=== PATIENT | female | born 1990 | race Caucasian/White ===

== ENCOUNTER 2016-10-08 01:10 | Emergency (ER) | payer OTHER ==
[2016-10-08] MEDS ORDERED: diPHENhydraMINE PO* 25 MG PO ONE (01:42)
--- NOTE | 2016-10-08 01:43 | ED ---
Skin Complaint - HPI Summary HPI Summary: 25F presents with rash starting on stomach and spread to shoulder over past hour. She denies any itchiness. She denies any fever but states that she feels warm so she took a Tylenol with did not help. She denies any new products or food. She denies a history of allergies. She denies any chest pain, SOB, or difficulty swallowing. - History of Current Complaint Chief Complaint: EDRashSkinAbscess Time Seen by Provider: 10/08/16 01:34 Stated Complaint: RASH/FEVER 100.0 Hx Last Menstrual Period: 03/14/17 Pain Intensity: 0 - Allergy/Home Medications Allergies/Adverse Reactions: Allergies Allergy/AdvReac Type Severity Reaction Status Date / Time Penicillins [PCN] Allergy Intermediate Rash And Verified 10/08/16 01:15 Itching Etodolac [From Lodine] Allergy Rash Verified 10/08/16 01:15 PMH/Surg Hx/FS Hx/Imm Hx Endocrine/Hematology History: Denies: Hx Anticoagulant Therapy, Hx Diabetes, Hx Thyroid Disease Cardiovascular History: Denies: Hx Congestive Heart Failure, Hx Deep Vein Thrombosis, Hx Hypertension , Hx Myocardial Infarction, Hx Pacemaker/ICD Respiratory History: Denies: Hx Asthma, Hx Chronic Obstructive Pulmonary Disease (COPD), Hx Lung Cancer, Hx Pneumonia, Hx Pulmonary Embolism GI History: Reports: Hx Ulcer - Her last one was in the last year. Last EGD was 2013--[place]. Denies: Hx Gall Bladder Disease, Hx Gastrointestinal Bleed, Hx Urosepsis History: Denies: Hx Kidney Stones, Hx Renal Disease Neurological History: Denies: Hx Dementia, Hx Migraine, Hx Seizures, Hx Transient Ischemic Attacks (TIA) Psychiatric History: Reports: Hx Anxiety Denies: Hx Depression, Hx Schizophrenia, Hx Bipolar Disorder - Surgical History Surgery Procedure, Year, and Place: repair to left arm fx. - Immunization History Date of Tetanus Vaccine: unknown Date of Influenza Vaccine: never Infectious Disease History: No Infectious Disease History: Denies: History Other Infectious Disease, Traveled Outside the [place] in Last 30 Days - Family History Known Family History: Negative: Renal Disease, Blood Disorder - Social History Alcohol Use: None Hx Substance Use: No Substance Use Type: Reports: None Hx Tobacco Use: Yes Smoking Status (MU): Former Smoker Review of Systems Negative: Fever Negative: Chest Pain Negative: Shortness Of Breath Positive: Rash All Other Systems Reviewed And Are Negative: Yes Physical Exam Triage Information Reviewed: Yes Vital Signs On Initial Exam: Initial Vitals Temp Pulse Resp BP Pulse Ox 99.1 F 95 14 115/75 100 10/08/16 01:11 10/08/16 01:11 10/08/16 01:11 10/08/16 01:11 10/08/16 01:11 Vital Signs Reviewed: Yes Appearance: Positive: Well-Appearing Skin: Positive: Other - hives present across abdomen, chest, and back Head/Face: Positive: Normal Head/Face Inspection Eyes: Positive: Normal, Conjunctiva Clear Respiratory/Lung Sounds: Positive: Clear to Auscultation, Breath Sounds Present Cardiovascular: Positive: Normal, RRR Diagnostics - Vital Signs Vital Signs Temp Pulse Resp BP Pulse Ox 10/08/16 01:11 99.1 F 95 14 115/75 100 - Laboratory Lab Statement: Any lab studies that have been ordered have been reviewed, and results considered in the medical decision making process. Course/Dx - Course Course Of Treatment: 25F presents with rash across chest, abdomen, and back today. denies any new products or food. never happened before. denies any chest pain, difficulty swallowing, or SOB. took tyenlol without relief. states felt warm but temp is normal. denies any other symptoms. rash is not itchy. on exam rash appears hive like. unclear what caused rash. will treat with bendaryl in case allergic and prednisone in case contact dermatitis. told to use sensitive products. patient understands and agrees with plan - Differential Diagnoses - Skin Complaint Differential Diagnoses: Contact Dermatitis, Local Allergic Reaction, Systemic Illness, Urticaria - Diagnoses Provider Diagnoses: Rash Discharge - Discharge Plan Condition: Good Disposition: HOME Prescriptions: predniSONE TAB* [Deltasone TAB*] 40 mg PO DAILY #4 tab Patient Education Materials: Contact Dermatitis (ED) Referrals: Sabina Estrada NP [Primary Care Provider] - Additional Instructions: Take Benadryl every 6 hours Take steroid once a day for 4 more days starting tomorrow Can apply topical hydrocortisone for itchiness Take Tylenol or ibuprofen every 6 hours for any pain Follow up with primary if no improvement Return to ED if develop any new or worsening symptoms
[2016-10-08] MEDS ORDERED: predniSONE TAB* 20 MG PO ONE (01:51)
[2016-10-08 03:09] VITALS: BP 115/76
== END 2016-10-08 02:10 | disposition home or self-care (01) ==
LOC: ED 01:10
DX: R21 Rash and other nonspecific skin eruption (principal); Z87.891 Personal history of nicotine dependence
CPT/HCPCS: 99282; A9270-GY; J7512

== ENCOUNTER 2016-12-07 19:18 | Emergency (ER) | payer OTHER ==
[2016-12-07 19:24] VITALS: BP 109/64
[2016-12-07] MEDS ORDERED: Ciprofloxacin TAB* 500 MG PO ONE (20:52)
--- NOTE | 2016-12-07 22:50 | UC ---
Jonna Javier SooYoung, scribed for Moose Stephens MD on 12/07/16 at 1959 . Abdominal Pain Female HPI - HPI Summary HPI Summary: A 26 y/o F presents to E with c/o cramps and pelvic pain onset two days ago. Denies: dysuria, vaginal discharge and bleeding, pain with intercourse, back pain, n/v/d, fever, chills. LNMP approx 10 days ago. Period was normal and on time. She's unsure if she is . G/P: 07/08. PMHx: kidney infections. Pt is a non-smoker, non-drinker. - History of Current Complaint Chief Complaint: UCAbdominalPain Stated Complaint: CRAMPING Time Seen by Provider: 12/07/16 19:58 Hx Obtained From: Patient Hx Last Menstrual Period: 11/27/16 Allergies/Adverse Reactions: Allergies Allergy/AdvReac Type Severity Reaction Status Date / Time Penicillins [PCN] Allergy Intermediate Rash And Verified 10/08/16 01:15 Itching Etodolac [From Lodine] Allergy Rash Verified 10/08/16 01:15 PMH/Surg Hx/FS Hx/Imm Hx Previously Healthy: No - pos: kidney infections GI/ History: Gastroesophageal Reflux Other History Of: Negative For: HIV, Hepatitis B, Hepatitis C, Anticoagulant Therapy - Surgical History Surgical History: Yes Surgery Procedure, Year, and Place: repair to left arm fx. - Family History Known Family History: Negative: Renal Disease, Blood Disorder - Social History Occupation: Employed Full-time Lives: Alone Alcohol Use: None Substance Use Type: None Smoking Status (MU): Former Smoker Household Exposure Type: Cigarettes Review of Systems Gastrointestinal: Other - cramping, pelvic pain Genitourinary: Negative All Other Systems Reviewed And Are Negative: Yes Physical Exam Triage Information Reviewed: Yes Vital Signs: Initial Vital Signs Temp 98.8 F 12/07/16 19:21 Pulse 84 12/07/16 19:21 Resp 16 12/07/16 19:21 BP 109/64 12/07/16 19:21 Pulse Ox 100 12/07/16 19:21 Vital Signs Reviewed: Yes - Additional Comments The patient is well-nourished in no acute distress and in no acute pain. The skin is warm and dry and skin color reflects adequate perfusion. HEENT: The head is normocephalic and atraumatic. The pupils are equal and reactive. The conjunctivae are clear and without drainage. Nares are patent and without drainage. Mouth reveals moist mucous membranes and the throat is without erythema and exudate. The external ears are intact. The ear canals are patent and without drainage. The tympanic membranes are intact. Neck is supple with full range of motion and non-tender. There are no carotid bruits. There is no neck vein distension. Respiratory: Chest is non-tender. Lungs are clear to auscultation and breath sounds are symmetrical and equal. Cardiovascular: Heart is regular rate and rhythm. There is no murmur or rub auscultated. There is no peripheral edema and pulses are symmetrical and equal. Abdomen: The abdomen is soft. There are normal bowel sounds heard in all four quadrants and there is no organomegaly palpated. SUPRAPUBIC TENDERNESS. NO CVA TENDERNESS. Neurological: Patient is alert and oriented to person, place and time. The patient has symmetrical motor strength in all four extremities. Cranial nerves are grossly intact. Deep tendon reflexes are symmetrical and equal in all four extremities. Psychiatric: The patient has an appropriate affect and does not exhibit any anxiety or depression. Abd Pain Female Course/Dx - Course Course Of Treatment: Pt medications reviewed this visit. Normal BP reading and no follow-up instructions required. - Differential Dx/Diagnosis Differential Diagnosis: , Urinary Tract Infection Provider Diagnoses: Pelvic pain; UTI. Discharge - Discharge Plan Condition: Stable Disposition: HOME Prescriptions: Ciprofloxacin TAB* [Cipro 500 MG TAB*] 500 mg PO BID #14 tab Patient Education Materials: Ciprofloxacin (By mouth), Urinary Tract Infection in Women (ED), Pelvic Pain in Women (ED) Referrals: Sabina Estrada NP [Primary Care Provider] - 1 Week (Follow up this week if symptoms persist.) Additional Instructions: Follow up with your primary care provider within the week if symptoms persist. Lab Results - Lab Results Lab Results: 12/07/16 12/07/16 20:16 20:23 POC Urine Color Yellow POC Urine Clarity Clear POC Urine pH 8.0 POC Ur Specif [place] 1.015 POC Urine Protein Negative POC Ur Glucose (UA) Negative POC Urine Ketones Negative POC Urine Blood Negative POC Urine Nitrite Negative POC Urine Bilirubin Negative POC Urine Urobilinogen 0.2 POC U Leukocyte Esteras Trace H POC Ur Test Negative The documentation as recorded by the Jonna asencio SooYoung accurately reflects the service I personally performed and the decisions made by me, Moose Stephens MD.
== END 2016-12-07 20:59 | disposition home or self-care (01) ==
LOC: UCEAST 19:18
DX: N39.0 Urinary tract infection, site not specified (principal); R10.2 Pelvic and perineal pain
CPT/HCPCS: 81003; 84702; 87077; 87086; 87186; 99212; A9270-GY; G0463

== ENCOUNTER 2017-02-26 19:11 | Emergency (ER) | payer OTHER ==
[2017-02-26 20:08] LABS: Urine Bilirubin Negative (Negative); Urine Glucose Negative (Negative); Urine Nitrite Negative (Negative)
[2017-02-26 22:08] LABS: Hematocrit 41 % (35-47); Hemoglobin 13.8 g/dl (12.0-16.0); Mean Corpuscular HGB Conc 34 g/dl (31-36); Mean Corpuscular Hemoglobin 32 pg (27-31); Mean Corpuscular Volume 95 fL (80-97); Mean Platelet Volume 9 um3 (7.4-10.4); Red Blood Count 4.32 10^6/ul (4.0-5.4); Red Cell Distribution Width 14 % (10.5-15); White Blood Count 5.5 10^3/ul (3.5-10.8)
--- NOTE | 2017-02-26 22:15 | RAD ---
HISTORY: Right upper quadrant pain. Patient reports eating approximately 3 hours earlier. COMPARISONS: Similar examination March 12, 2013 TECHNIQUE: Multiple transverse and longitudinal ultrasound images were obtained of the right upper quadrant. FINDINGS: LIVER: The liver is normal in dimensions and echogenicity. Normal hepatic and portal venous blood flow is duplicated with color flow imaging. There is no gross intrahepatic biliary duct dilatation. GALLBLADDER AND EXTRAHEPATIC BILIARY DUCT: There is hyperdense material in the dependent portion of the gallbladder. There is no pericholecystic fluid or gallbladder wall thickening. The common bile duct measures a maximum diameter of 2 mm. PANCREAS: The portions of the pancreas not obscured by bowel gas are normal in appearance. RIGHT KIDNEY: The right kidney is normal in size, morphology and echogenicity. AORTA AND IVC: The visualized portions are normal in appearance and not pathologically dilated. IMPRESSION: SONOGRAPHIC FINDINGS ARE MOST CONSISTENT WITH GALLBLADDER SLUDGE WITHOUT EVIDENCE OF BILIARY OBSTRUCTION OR ACUTE INFLAMMATORY CHANGE.
[2017-02-26 22:24] LABS: ALT 10 U/L (7-52); AST 16 U/L (13-39); Albumin 4.6 g/dL (3.2-5.2); Alkaline Phosphatase 38 U/L (34-104); Anion Gap 4 mmol/L (2-11); BUN/Creatinine Ratio 17.5 (8-20); Blood Urea Nitrogen 14 mg/dL (6-24); C Reactive Protein < 1.00 mg/L (< 5.00); CO2 Carbon Dioxide 27 mmol/L (22-32); Calcium 9.3 mg/dL (8.6-10.3); Chloride 108 mmol/L (101-111); EGFR African American 110.7 (>60); Globulin 2.1 g/dL (2-4); Glucose 95 mg/dL (70-100); Lipase 31 U/L (11.0-82.0); Potassium 4.2 mmol/L (3.5-5.0); Sodium 139 mmol/L (133-145); Total Protein 6.7 g/dL (6.4-8.9)
[2017-02-26 23:26] VITALS: BP 109/75
--- NOTE | 2017-02-26 23:30 | ED ---
I, Oh,Soohyun, scribed for Miguel Cintron MD on 02/26/17 at 1947 . Abdominal Pain/Female - HPI Summary HPI Summary: This 26 y/o female presents to ED for constant but waxing and waning right sided abd pain since today AM. Pt woke up with the pain at 0930 AM. Pain is described as sharp/stabbing. Eating does not aggravate the pain. Position does not change the pain. Negative nausea or dysuira. Normal BM. LMP is 01/11/2017. Pt states that it is late, but had negative home test 1.5 week ago. PMHx includes ovarian cysts and GERD. Primary care involves Sabina Estrada NP - History of Current Complaint Chief Complaint: EDAbdPain Stated Complaint: ABD PAIN-RT SIDE Time Seen by Provider: 02/26/17 19:37 Hx Obtained From: Patient, Medical Records Hx Last Menstrual Period: 01/11/2017 Onset/Duration: Sudden Onset, Lasting Hours, Still Present Timing: Constant Pain Intensity: 5 Pain Scale Used: 0-10 Numeric Location: Discrete At: RUQ, Discrete At: RLQ Radiates: No Character: Sharp Aggravating Factor(s): Nothing Alleviating Factor(s): Nothing Associated Signs and Symptoms: Negative: Fever, Urinary Symptoms, Nausea, Diarrhea Allergies/Adverse Reactions: Allergies Allergy/AdvReac Type Severity Reaction Status Date / Time Penicillins [PCN] Allergy Intermediate Rash And Verified 02/26/17 19:16 Itching Etodolac [From Lodine] Allergy Rash Verified 02/26/17 19:16 PMH/Surg Hx/FS Hx/Imm Hx Endocrine/Hematology History: Denies: Hx Anticoagulant Therapy, Hx Diabetes, Hx Thyroid Disease Cardiovascular History: Denies: Hx Congestive Heart Failure, Hx Deep Vein Thrombosis, Hx Hypertension , Hx Myocardial Infarction, Hx Pacemaker/ICD Respiratory History: Denies: Hx Asthma, Hx Chronic Obstructive Pulmonary Disease (COPD), Hx Lung Cancer, Hx Pneumonia, Hx Pulmonary Embolism GI History: Reports: Hx Ulcer - Her last one was in the last year. Last EGD was 2013--[place]. Denies: Hx Gall Bladder Disease, Hx Gastrointestinal Bleed, Hx Urosepsis History: Denies: Hx Kidney Stones, Hx Renal Disease Neurological History: Denies: Hx Dementia, Hx Migraine, Hx Seizures, Hx Transient Ischemic Attacks (TIA) Psychiatric History: Reports: Hx Anxiety Denies: Hx Depression, Hx Schizophrenia, Hx Bipolar Disorder - Surgical History Surgery Procedure, Year, and Place: repair to left arm fx. - Immunization History Date of Tetanus Vaccine: unknown Date of Influenza Vaccine: never Infectious Disease History: No Infectious Disease History: Denies: Hx Clostridium Difficile, Hx Hepatitis, Hx Human Immunodeficiency Virus (HIV), Hx of Known/Suspected MRSA, Hx Shingles, Hx Tuberculosis, Hx Known/ Suspected VRE, Hx Known/Suspected VRSA, History Other Infectious Disease, Traveled Outside the [place] in Last 30 Days - Family History Known Family History: Negative: Renal Disease, Blood Disorder - Social History Alcohol Use: None Hx Substance Use: No Substance Use Type: Reports: None Hx Tobacco Use: Yes Smoking Status (MU): Former Smoker Review of Systems Negative: Fever Positive: Abdominal Pain - right sided abd pain. Negative: Vomiting, Diarrhea, Nausea Negative: dysuria All Other Systems Reviewed And Are Negative: Yes Physical Exam Triage Information Reviewed: Yes Vital Signs On Initial Exam: Initial Vitals Temp Pulse Resp BP Pulse Ox 98.6 F 99 16 108/71 98 02/26/17 19:14 02/26/17 19:14 02/26/17 19:14 02/26/17 19:14 02/26/17 19:14 Vital Signs Reviewed: Yes Appearance: Positive: Well-Appearing, No Pain Distress, Well-Nourished Skin: Positive: Warm, Skin Color Reflects Adequate Perfusion, Dry Head/Face: Positive: Normal Head/Face Inspection Eyes: Positive: EOMI, JORDAN Neck: Positive: Supple, Nontender Respiratory/Lung Sounds: Positive: Clear to Auscultation, Breath Sounds Present Cardiovascular: Positive: RRR, Pulses are Symmetrical in both Upper and Lower Extremities Abdomen Description: Positive: Other: - RUQ tenderness and right flank tenderness Musculoskeletal: Positive: Strength/ROM Intact Neurological: Positive: Sensory/Motor Intact, Alert, Oriented to Person Place, Time Psychiatric: Positive: Affect/Mood Appropriate AVPU Assessment: Alert Diagnostics - Vital Signs Vital Signs Temp Pulse Resp BP Pulse Ox 02/26/17 19:16 98.6 F 99 16 108/71 98 02/26/17 19:14 98.6 F 99 16 108/71 98 - Laboratory Lab Results: Lab Results 08/22/17 08/22/17 08/22/17 Range/Units 19:40 22:00 22:00 WBC 5.5 (3.5-10.8) 10^3/ul RBC 4.32 (4.0-5.4) 10^6/ul Hgb 13.8 (12.0-16.0) g/dl Hct 41 (35-47) % MCV 95 (80-97) fL MCH 32 H (27-31) pg MCHC 34 (31-36) g/dl RDW 14 (10.5-15) % Plt Count 172 (150-450) 10^3/ul MPV 9 (7.4-10.4) um3 Neut % (Auto) 57.0 (38-83) % Lymph % (Auto) 31.8 (25-47) % [place] % (Auto) 7.7 (1-9) % Eos % (Auto) 3.1 (0-6) % Baso % (Auto) 0.4 (0-2) % Absolute Neuts (auto) 3.1 (1.5-7.7) 10^3/ul Absolute Lymphs (auto) 1.7 (1.0-4.8) 10^3/ul Absolute Monos (auto) 0.4 (0-0.8) 10^3/ul Absolute Eos (auto) 0.2 (0-0.6) 10^3/ul Absolute Basos (auto) 0 (0-0.2) 10^3/ul Absolute Nucleated RBC 0 10^3/ul Nucleated RBC % 0 Sodium 139 (133-145) mmol/L Potassium 4.2 (3.5-5.0) mmol/L Chloride 108 (101-111) mmol/L Carbon Dioxide 27 (22-32) mmol/L Anion Gap 4 (2-11) mmol/L BUN 14 (6-24) mg/dL Creatinine 0.80 (0.51-0.95) mg/dL Est GFR ( Amer) 110.7 (>60) Est GFR (Non-Af Amer) 86.0 (>60) BUN/Creatinine Ratio 17.5 (8-20) Glucose 95 (70-100) mg/dL Lactic Acid (0.5-2.0) mmol/L Calcium 9.3 (8.6-10.3) mg/dL Total Bilirubin 0.40 (0.2-1.0) mg/dL AST 16 (13-39) U/L ALT 10 (7-52) U/L Alkaline Phosphatase 38 (34-104) U/L C-Reactive Protein < 1.00 (< 5.00) mg/L Total Protein 6.7 (6.4-8.9) g/dL Albumin 4.6 (3.2-5.2) g/dL Globulin 2.1 (2-4) g/dL Albumin/Globulin Ratio 2.2 (1-3) Lipase 31 (11.0-82.0) U/L Beta HCG, Quant < 0.60 mIU/mL Urine Color Yellow Urine Appearance Cloudy Urine pH 6.0 (5-9) Ur Specific [place] 1.015 (1.010-1.030) Urine Protein Negative (Negative) Urine Ketones Negative (Negative) Urine Blood Negative (Negative) Urine Nitrate Negative (Negative) Urine Bilirubin Negative (Negative) Urine Urobilinogen Negative (Negative) Ur Leukocyte Esterase Negative (Negative) Urine Glucose Negative (Negative) 02/26/17 Range/Units 22:00 WBC (3.5-10.8) 10^3/ul RBC (4.0-5.4) 10^6/ul Hgb (12.0-16.0) g/dl Hct (35-47) % MCV (80-97) fL MCH (27-31) pg MCHC (31-36) g/dl RDW (10.5-15) % Plt Count (150-450) 10^3/ul MPV (7.4-10.4) um3 Neut % (Auto) (38-83) % Lymph % (Auto) (25-47) % [place] % (Auto) (1-9) % Eos % (Auto) (0-6) % Baso % (Auto) (0-2) % Absolute Neuts (auto) (1.5-7.7) 10^3/ul Absolute Lymphs (auto) (1.0-4.8) 10^3/ul Absolute Monos (auto) (0-0.8) 10^3/ul Absolute Eos (auto) (0-0.6) 10^3/ul Absolute Basos (auto) (0-0.2) 10^3/ul Absolute Nucleated RBC 10^3/ul Nucleated RBC % Sodium (133-145) mmol/L Potassium (3.5-5.0) mmol/L Chloride (101-111) mmol/L Carbon Dioxide (22-32) mmol/L Anion Gap (2-11) mmol/L BUN (6-24) mg/dL Creatinine (0.51-0.95) mg/dL Est GFR ( Amer) (>60) Est GFR (Non-Af Amer) (>60) BUN/Creatinine Ratio (8-20) Glucose (70-100) mg/dL Lactic Acid 0.9 (0.5-2.0) mmol/L Calcium (8.6-10.3) mg/dL Total Bilirubin (0.2-1.0) mg/dL AST (13-39) U/L ALT (7-52) U/L Alkaline Phosphatase (34-104) U/L C-Reactive Protein (< 5.00) mg/L Total Protein (6.4-8.9) g/dL Albumin (3.2-5.2) g/dL Globulin (2-4) g/dL Albumin/Globulin Ratio (1-3) Lipase (11.0-82.0) U/L Beta HCG, Quant mIU/mL Urine Color Urine Appearance Urine pH (5-9) Ur Specific [place] (1.010-1.030) Urine Protein (Negative) Urine Ketones (Negative) Urine Blood (Negative) Urine Nitrate (Negative) Urine Bilirubin (Negative) Urine Urobilinogen (Negative) Ur Leukocyte Esterase (Negative) Urine Glucose (Negative) Result Diagrams: 02/26/17 22:00 02/26/17 22:00 Lab Statement: Any lab studies that have been ordered have been reviewed, and results considered in the medical decision making process. - Additional Comments Diagnostic Additional Comments: US Gallbladder -- SONOGRAPHIC FINDINGS ARE MOST CONSISTENT WITH GALLBLADDER SLUDGE WITHOUT EVIDENCE OF BILIARY OBSTRUCTION OR ACUTE INFLAMMATORY CHANGE. Re-Evaluation - Re-Evaluation First Eval Re-Evaluation Time: 21:08 Comment: in room to re-evaluate pt. Pt reports worsening symptoms. Abdominal Pain Fem Course/Dx - Course Course Of Treatment: Ms. Bradford has had some mild RUQ pain and was mildly tender to palpation. HE W/U was negative and she will be D/C'd to F/U. - Diagnoses Provider Diagnoses: Abdominal pain Discharge - Discharge Plan Condition: Stable Disposition: HOME Patient Education Materials: Abdominal Pain (ED) Forms: *Work Release Referrals: Sabina Estrada, SANITATION ENGINEER [Primary Care Provider] - 2 Days The documentation as recorded by the Luis F asencio Soohyun accurately reflects the service I personally performed and the decisions made by me, Miguel Cintron MD.
== END 2017-02-26 23:26 | disposition home or self-care (01) ==
LOC: ED 19:11
DX: R10.9 Unspecified abdominal pain (principal); Z87.891 Personal history of nicotine dependence
CPT/HCPCS: 36415; 76705; 80053; 81003; 83605; 83690; 84702; 85025; 86140; 99283

== ENCOUNTER 2017-07-23 08:49 | Emergency (ER) | payer MEDICAID, OTHER ==
[2017-07-23] MEDS ORDERED: Ondansetron INJ* 2 MG/ML VIAL IV ONE (10:02)
[2017-07-23] MEDS ORDERED: NS 0.9% 1000 ML* 1,000 ML IV ONE (10:31)
[2017-07-23 10:46] LABS: ABS Basophils 0 10^3/ul (0-0.2); ABS Eosinophils 0.1 10^3/ul (0-0.6); ABS Lymphocytes 1.6 10^3/ul (1.0-4.8); ABS Monocytes 0.3 10^3/ul (0-0.8); ABS Nucleated RBC 0 10^3/ul; Eosinophil % 3.2 % (0-6); Hematocrit 40 % (35-47); Hemoglobin 13.7 g/dl (12.0-16.0); Lymphocyte % 38.3 % (25-47); Mean Corpuscular HGB Conc 34 g/dl (31-36); Mean Corpuscular Hemoglobin 32 pg (27-31); Mean Corpuscular Volume 94 fL (80-97); Mean Platelet Volume 9 um3 (7.4-10.4); Nucleated Red Blood Cells % 0.1; Platelet Count 182 10^3/ul (150-450); Red Blood Count 4.28 10^6/ul (4.0-5.4); Red Cell Distribution Width 13 % (10.5-15); White Blood Count 4.1 10^3/ul (3.5-10.8)
--- NOTE | 2017-07-23 10:48 | RAD ---
HISTORY: Right upper quadrant pain COMPARISONS: February 26, 2017 TECHNIQUE: Multiple transverse and longitudinal ultrasound images were obtained of the right upper quadrant of the abdomen using grayscale and color Doppler imaging. FINDINGS: LIVER: The liver is normal in shape, size, contour, and echogenicity. There are no focal parenchymal masses. There is normal hepatopedal flow of the portal vein on Doppler imaging. BILIARY TREE: There is no intrahepatic or extrahepatic biliary dilatation. The common duct measures 0.2 cm. GALLBLADDER: The gallbladder is well-visualized. There is no cholelithiasis, gallbladder wall thickening, pericholecystic fluid, or sonographic Carrasco sign. PANCREAS: The head of the pancreas is unremarkable. The tail of the pancreas is not well visualized secondary to overlying bowel gas. RIGHT KIDNEY: The right kidney is normal in shape, size, contour, and echogenicity. There is no hydronephrosis or nephrolithiasis. The right kidney measures 10.8 x 3.5 x 3.6 cm. AORTA AND IVC: The aorta and IVC are unremarkable. FLUID: There are no pleural effusions. There is no free fluid within the hepatorenal recess. OTHER FINDINGS: None. IMPRESSION: NO CHOLELITHIASIS. NO ACUTE SONOGRAPHIC PATHOLOGY OF THE VISUALIZED PORTION OF THE ABDOMEN.
[2017-07-23 11:03] LABS: EGFR Non-African American 100.4 (>60)
[2017-07-23 11:18] LABS: Urine Appearance Clear; Urine Color Yellow
[2017-07-23 11:22] LABS: Urine Blood Negative (Negative); Urine Ketones Negative (Negative); Urine Protein 1+(30 mg/dL) (Negative); Urine Specific Gravity 1.025 (1.010-1.030); Urine Urobilinogen Negative (Negative)
[2017-07-23] MEDS ORDERED: Al Hydrox/Mg Hydrox/Simet LIQ* 30 ML UDC PO ONE (12:36)
[2017-07-23] MEDS ORDERED: Lidocaine 2% VISCOUS* 15 ML UDC PO ONE (12:36)
--- NOTE | 2017-07-23 12:37 | ED ---
Abdominal Pain/Female - HPI Summary HPI Summary: Pt here w/ RUQ pain x months but recently radiating to Rt shoulder. Denies V/D however has had some nausea at times. No hematochezia. Can tolerate fat free PO liquids - pain with food only and has not tried to eat fat free foods only. H/o GB issues - "sludge" present at last visit and reports it was recommended she have a stent placed however she lost her insurance so never had this done. Admits she's here today because she couldn't get in to see PCP and was "going to need referral to specialist all over again" - didn't want to wait. Also has h /o GERD and was rx'd PPI - has been taking w/o much relief of RUQ pain - had worse GERD in the past and reports pain in RUQ to shoulder feels different. LMP - now. - History of Current Complaint Chief Complaint: Zheng Stated Complaint: ABD/FLANK PAIN Time Seen by Provider: 07/23/17 09:09 Hx Obtained From: Patient Hx Last Menstrual Period: 01/11/2017 Pain Intensity: 5 Allergies/Adverse Reactions: Allergies Allergy/AdvReac Type Severity Reaction Status Date / Time Penicillins [PCN] Allergy Intermediate Rash And Verified 02/26/17 19:16 Itching Etodolac [From Lodine] Allergy Rash Verified 02/26/17 19:16 PMH/Surg Hx/FS Hx/Imm Hx Previously Healthy: No - ongoing gallbladder issue Endocrine/Hematology History: Denies: Hx Anticoagulant Therapy, Hx Diabetes, Hx Thyroid Disease Cardiovascular History: Denies: Hx Congestive Heart Failure, Hx Deep Vein Thrombosis, Hx Hypertension , Hx Myocardial Infarction, Hx Pacemaker/ICD Respiratory History: Denies: Hx Asthma, Hx Chronic Obstructive Pulmonary Disease (COPD), Hx Lung Cancer, Hx Pneumonia, Hx Pulmonary Embolism GI History: Reports: Hx Ulcer - Her last one was in the last year. Last EGD was 2013--[place]. Denies: Hx Gall Bladder Disease, Hx Gastrointestinal Bleed, Hx Urosepsis History: Denies: Hx Kidney Stones, Hx Renal Disease Neurological History: Denies: Hx Dementia, Hx Migraine, Hx Seizures, Hx Transient Ischemic Attacks (TIA) Psychiatric History: Reports: Hx Anxiety Denies: Hx Depression, Hx Schizophrenia, Hx Bipolar Disorder - Surgical History Surgery Procedure, Year, and Place: repair to left arm fx. - Immunization History Date of Tetanus Vaccine: unknown Date of Influenza Vaccine: never Infectious Disease History: No Infectious Disease History: Denies: Hx Clostridium Difficile, Hx Hepatitis, Hx Human Immunodeficiency Virus (HIV), Hx of Known/Suspected MRSA, Hx Shingles, Hx Tuberculosis, Hx Known/ Suspected VRE, Hx Known/Suspected VRSA, History Other Infectious Disease, Traveled Outside the [place] in Last 30 Days - Family History Known Family History: Negative: Renal Disease, Blood Disorder - Social History Alcohol Use: None Hx Substance Use: No Substance Use Type: Reports: None Hx Tobacco Use: Yes - not currently Smoking Status (MU): Former Smoker Review of Systems Constitutional: Negative Negative: Fever, Chills, Fatigue Cardiovascular: Negative Negative: Palpitations, Chest Pain Respiratory: Negative Negative: Shortness Of Breath, Cough Positive: Abdominal Pain, Nausea. Negative: Vomiting, Diarrhea Genitourinary: Negative Musculoskeletal: Negative Skin: Negative Neurological: Negative Psychological: Normal All Other Systems Reviewed And Are Negative: Yes Physical Exam Triage Information Reviewed: Yes Vital Signs On Initial Exam: Initial Vitals Temp Pulse Resp BP Pulse Ox 99.5 F 65 16 108/63 100 07/23/17 08:55 07/23/17 08:55 07/23/17 08:55 07/23/17 08:55 07/23/17 08:55 Vital Signs Reviewed: Yes Appearance: Positive: Well-Appearing, No Pain Distress, Well-Nourished Skin: Positive: Warm, Skin Color Reflects Adequate Perfusion, Dry Head/Face: Positive: Normal Head/Face Inspection Eyes: Positive: Normal, EOMI, Conjunctiva Clear - anicteric sclera ENT: Positive: Normal ENT inspection, Hearing grossly normal, Pharynx normal - mucosa moist Neck: Positive: Supple, Nontender Respiratory/Lung Sounds: Positive: Clear to Auscultation, Breath Sounds Present. Negative: Rales, Rhonchi, Wheezes Cardiovascular: Positive: Normal, RRR, Pulses are Symmetrical in both Upper and Lower Extremities, S1, S2. Negative: Murmur, Rub Abdomen Description: Positive: No Organomegaly, Soft, Other: - mild RUQ TTP - no rebounding. Negative: Distended, Guarding, Hernia @ Bowel Sounds: Positive: Present Pelvic Exam: Positive: other - deferred - pt denies vaginal sx Musculoskeletal: Positive: Normal, Strength/ROM Intact Neurological: Positive: Normal, Sensory/Motor Intact, Alert, Oriented to Person Place, Time, CN Intact II-III Psychiatric: Positive: Normal - [place] Coma Scale Coma Scale Total: 15 Diagnostics - Vital Signs Vital Signs Temp Pulse Resp BP Pulse Ox 07/23/17 12:30 92/57 07/23/17 12:00 90/60 07/23/17 11:30 63 110/68 100 07/23/17 11:06 66 100 07/23/17 11:04 127/63 07/23/17 08:55 99.5 F 65 16 108/63 100 - Laboratory Lab Results: Lab Results 07/23/17 07/23/17 07/23/17 Range/Units 10:37 10:37 10:37 WBC 4.1 (3.5-10.8) 10^3/ul RBC 4.28 (4.0-5.4) 10^6/ul Hgb 13.7 (12.0-16.0) g/dl Hct 40 (35-47) % MCV 94 (80-97) fL MCH 32 H (27-31) pg MCHC 34 (31-36) g/dl RDW 13 (10.5-15) % Plt Count 182 (150-450) 10^3/ul MPV 9 (7.4-10.4) um3 Neut % (Auto) 49.2 (38-83) % Lymph % (Auto) 38.3 (25-47) % [place] % (Auto) 8.6 (1-9) % Eos % (Auto) 3.2 (0-6) % Baso % (Auto) 0.7 (0-2) % Absolute Neuts (auto) 2.0 (1.5-7.7) 10^3/ul Absolute Lymphs (auto) 1.6 (1.0-4.8) 10^3/ul Absolute Monos (auto) 0.3 (0-0.8) 10^3/ul Absolute Eos (auto) 0.1 (0-0.6) 10^3/ul Absolute Basos (auto) 0 (0-0.2) 10^3/ul Absolute Nucleated RBC 0 10^3/ul Nucleated RBC % 0.1 Sodium 137 (133-145) mmol/L Potassium 4.0 (3.5-5.0) mmol/L Chloride 106 (101-111) mmol/L Carbon Dioxide 26 (22-32) mmol/L Anion Gap 5 (2-11) mmol/L BUN 7 (6-24) mg/dL Creatinine 0.70 (0.51-0.95) mg/dL Est GFR ( Amer) 129.1 (>60) Est GFR (Non-Af Amer) 100.4 (>60) BUN/Creatinine Ratio 10.0 (8-20) Glucose 78 (70-100) mg/dL Lactic Acid 1.0 (0.5-2.0) mmol/L Calcium 9.3 (8.6-10.3) mg/dL Magnesium 2.2 (1.9-2.7) mg/dL Total Bilirubin 0.50 (0.2-1.0) mg/dL AST 12 L (13-39) U/L ALT 11 (7-52) U/L Alkaline Phosphatase 38 (34-104) U/L C-Reactive Protein < 1.00 (< 5.00) mg/L Total Protein 6.4 (6.4-8.9) g/dL Albumin 4.3 (3.2-5.2) g/dL Globulin 2.1 (2-4) g/dL Albumin/Globulin Ratio 2.0 (1-3) Amylase 36 (29-103) U/L Lipase 23 (11.0-82.0) U/L Beta HCG, Quant < 0.60 mIU/mL Urine Color Urine Appearance Urine pH (5-9) Ur Specific [place] (1.010-1.030) Urine Protein (Negative) Urine Ketones (Negative) Urine Blood (Negative) Urine Nitrate (Negative) Urine Bilirubin (Negative) Urine Urobilinogen (Negative) Ur Leukocyte Esterase (Negative) Urine Glucose (Negative) 07/23/17 Range/Units 11:00 WBC (3.5-10.8) 10^3/ul RBC (4.0-5.4) 10^6/ul Hgb (12.0-16.0) g/dl Hct (35-47) % MCV (80-97) fL MCH (27-31) pg MCHC (31-36) g/dl RDW (10.5-15) % Plt Count (150-450) 10^3/ul MPV (7.4-10.4) um3 Neut % (Auto) (38-83) % Lymph % (Auto) (25-47) % [place] % (Auto) (1-9) % Eos % (Auto) (0-6) % Baso % (Auto) (0-2) % Absolute Neuts (auto) (1.5-7.7) 10^3/ul Absolute Lymphs (auto) (1.0-4.8) 10^3/ul Absolute Monos (auto) (0-0.8) 10^3/ul Absolute Eos (auto) (0-0.6) 10^3/ul Absolute Basos (auto) (0-0.2) 10^3/ul Absolute Nucleated RBC 10^3/ul Nucleated RBC % Sodium (133-145) mmol/L Potassium (3.5-5.0) mmol/L Chloride (101-111) mmol/L Carbon Dioxide (22-32) mmol/L Anion Gap (2-11) mmol/L BUN (6-24) mg/dL Creatinine (0.51-0.95) mg/dL Est GFR ( Amer) (>60) Est GFR (Non-Af Amer) (>60) BUN/Creatinine Ratio (8-20) Glucose (70-100) mg/dL Lactic Acid (0.5-2.0) mmol/L Calcium (8.6-10.3) mg/dL Magnesium (1.9-2.7) mg/dL Total Bilirubin (0.2-1.0) mg/dL AST (13-39) U/L ALT (7-52) U/L Alkaline Phosphatase (34-104) U/L C-Reactive Protein (< 5.00) mg/L Total Protein (6.4-8.9) g/dL Albumin (3.2-5.2) g/dL Globulin (2-4) g/dL Albumin/Globulin Ratio (1-3) Amylase (29-103) U/L Lipase (11.0-82.0) U/L Beta HCG, Quant mIU/mL Urine Color Yellow Urine Appearance Clear Urine pH 6 (5-9) Ur Specific Venus 1.025 (1.010-1.030) Urine Protein 1+(30 mg/dl) H (Negative) Urine Ketones Negative (Negative) Urine Blood Negative (Negative) Urine Nitrate Negative (Negative) Urine Bilirubin Negative (Negative) Urine Urobilinogen Negative (Negative) Ur Leukocyte Esterase Negative (Negative) Urine Glucose Negative (Negative) Result Diagrams: 07/23/17 10:37 07/23/17 10:37 Lab Statement: Any lab studies that have been ordered have been reviewed, and results considered in the medical decision making process. Re-Evaluation - Re-Evaluation First Eval Change: Improved - nausea improved w/ zofran - still has some soreness - will trial GI cocktail as she also has h/o GERD - U/S normal but discussed possibility of gallbladder dysfunction Abdominal Pain Fem Course/Dx - Course Course Of Treatment: Discussed case w/ Dr. Savage. Pt does not appear to have structural issues w/ Gallbaldder or liver - labs WNL and vitals are as well. Discussed with pt possibility of GB dysfunction and that a HIDA cck could be ordered outpt to further assess. tx GERD/gastritis as well here today as well to see if this helps her sx. If so, may follow-up with PCP to discuss further w/ u there as she has h/o ulcer. Denies s/sx of GI bleed today and labs along with vitals do not indicate this being an acute issue. Reviewed danger s/sx of when to return to ED. Pt agrees w/ plan and will follow fat free/GERD diet in the meantime until further care by PCP. - Diagnoses Provider Diagnoses: RUQ abdominal pain, GERD (gastroesophageal reflux disease) Discharge - Discharge Plan Condition: Stable Disposition: HOME Prescriptions: Ondansetron ODT TAB* [Zofran 4 MG Odt TAB*] 8 mg PO Q8H PRN #9 tab.odt PRN Reason: Nausea Patient Education Materials: Biliary Colic (ED), Diet for Stomach Ulcers and Gastritis (ED), Gastroesophageal Reflux Disease (ED) Referrals: Sabina Estrada, [employer] [Primary Care Provider] - Additional Instructions: Your tests here today were negative for acute liver/gallbladder and/pr pancreatic pathology however we discussed the possibility of dysfunction of the gallbladder. This may be evaluated outpatient via HIDA CCK testing. Your PCP can order this for your and review results. If positive, you may benefit from a surgical consult. Call today to request test to be scheduled and follow-up appointment. In the meantime, continue gallbladder/GERD diet to reduce risk of triggering pain. Stay hydrated and nourished with fat free foods and liquids. A nausea medication has been provided for brief use around time of testing - this is not meant for nutrient management specialist use. *If you develop fever, chills, intractable vomiting, diarrhea, chest pain, difficulty breathing or swallowing, return to ED
[2017-07-23 13:54] VITALS: BP 105/67
== END 2017-07-23 13:53 | disposition home or self-care (01) ==
LOC: ED 08:49
DX: R10.11 Right upper quadrant pain (principal); K21.9 Gastro-esophageal reflux disease without esophagitis; R11.0 Nausea
CPT/HCPCS: 36415; 76705; 80053; 81003; 81015; 82150; 83605; 83690; 83735; 84702; 85025; 86140; 96374; 99282; A9270-GY; J2405

== ENCOUNTER 2018-05-13 16:50 | Emergency (ER) | payer OTHER ==
[2018-05-13 17:03] VITALS: BP 137/96
--- NOTE | 2018-05-13 17:05 | UC ---
Throat Pain/Nasal Brennan HPI - HPI Summary HPI Summary: 27 yo female presents with fever, rash on torso, and body aches for the last 3 days. She tells me that about 2-3 weeks ago she had a sore throat for a few days , but this went away. The rash began this morning that she noticed on her abdomen and has spread to her chest. She has been taking tylenol and ibuprofen for her discomfort with mild relief. Denies chills, cough, SOB, chest pain, abdominal pain, n/v/d/c, or dysuria. Her LMP was on 04/09, but she says she is usually irregular and is not surprised she is late - but has had unprotected intercourse over the last month and is not on control. - History of Current Complaint Chief Complaint: UCGeneralIllness Stated Complaint: FEVER, RASH, AND ACHES Time Seen by Provider: 05/13/18 17:04 Hx Obtained From: Patient Hx Last Menstrual Period: [id number] Onset/Duration: Gradual Onset Severity: Mild Pain Intensity: 3 Pain Scale Used: 0-10 Numeric - Allergies/Home Medications Allergies/Adverse Reactions: Allergies Allergy/AdvReac Type Severity Reaction Status Date / Time etodolac Allergy Intermediate Rash Verified 05/13/18 17:03 Penicillins Allergy Intermediate Rash And Verified 05/13/18 17:03 Itching PMH/Surg Hx/FS Hx/Imm Hx Cardiovascular History: Hypertension GI/ History: Gastroesophageal Reflux Other History Of: Negative For: HIV, Hepatitis B, Hepatitis C, Anticoagulant Therapy - Surgical History Surgical History: Yes Surgery Procedure, Year, and Place: repair to left arm fx. - Family History Known Family History: Positive: None Negative: Renal Disease, Blood Disorder - Social History Occupation: Employed Full-time Lives: With Family Alcohol Use: None Substance Use Type: None Smoking Status (MU): Former Smoker Household Exposure Type: Cigarettes Review of Systems Constitutional: Fever, Other - Body aches Skin: Rash Eyes: Negative ENT: Sore Throat Respiratory: Negative Cardiovascular: Negative Gastrointestinal: Negative Neurovascular: Negative Neurological: Negative Psychological: Negative All Other Systems Reviewed And Are Negative: Yes Physical Exam - Summary Physical Exam Summary: GENERAL: NAD. WDWN. No pain distress. SKIN: Maculopapular sandpaper-like flat rash to chest, abdomen, and extensively on back. No open wounds or warmth. HEENT: Head: AT/NC Eyes: Conjunctiva clear without inflammation or discharge. Ears: Hearing grossly normal. TMs intact, no bulging, erythema, or edema. Nose: Nasal mucosa pink and moist. NTTP maxillary and frontal sinus. Throat: Posterior oropharynx mild erythema. No tonsillar enlargement. No exudates. Uvula midline. No hoarse voice or muffled voice. NECK: Supple. Mild tonsillar LAD. CHEST: CTAB. No r/r/w. No accessory muscle use. Breathing comfortably and in no distress. CV: RRR. Without m/r/g. Pulses intact. Cap refill <2seconds ABDOMEN: Soft. NTTP. No distention or guarding. No CVA tenderness. Bowel sounds present NEURO: Alert. PSYCH: Age appropriate behavior. Triage Information Reviewed: Yes Vital Signs: Initial Vital Signs Temp 99.6 F 05/13/18 16:58 Pulse 99 05/13/18 16:58 Resp 16 05/13/18 16:58 BP 137/96 05/13/18 16:58 Pulse Ox 100 05/13/18 16:58 Laboratory Tests 05/13/18 05/13/18 17:08 17:14 POC Urine Color Bel[place] POC Urine Clarity Cloudy POC Urine pH 5.5 POC Ur Specif [place] >= 1.030 POC Urine Protein Negative POC Ur Glucose (UA) Negative POC Urine Ketones 1+ A POC Urine Blood Negative POC Urine Nitrite Negative POC Urine Bilirubin 1+ A POC Urine Urobilinogen 1.0 POC U Leukocyte Esteras Negative Group A Strep Rapid Negative Vital Signs Reviewed: Yes Throat Pain/Nasal Course/Dx - Course Course Of Treatment: High suspicion for strep rash given recent sore throat and now appearance of rash. Will treat her with keflex for strep infection and draw for CBC, CMP, monospot, and ASO titer. - Differential Dx/Diagnosis Provider Diagnoses: scarlatina Discharge - Sign-Out/Discharge Documenting (check all that apply): Patient Departure All imaging exams completed and their final reports reviewed: No Studies - Discharge Plan Condition: Stable Disposition: HOME Prescriptions: Cephalexin CAP* [Keflex CAP*] 500 mg PO BID #20 cap Patient Education Materials: Strep Throat (ED), Scarlet Fever (ED) Referrals: Sabina Estrada NP [Primary Care Provider] - Additional Instructions: If you develop a fever, shortness of breath, chest pain, new or worsening symptoms - please call your PCP or go to the ED. Your blood pressure was high at todays visit. Please see your primary provider within 4 weeks for recheck and re-evaluation. - Billing Disposition and Condition Condition: STABLE Disposition: Home - Attestation Statements Provider Attestation: Per institutional requirements, I have reviewed the chart, however, I was not consulted specifically or made aware of this patient by the midlevel provider. I did not personally evaluate, interact with , or disposition this patient.
[2018-05-14 11:12] LABS: ABS Basophils 0 10^3/ul (0-0.2); ABS Eosinophils 0.2 10^3/ul (0-0.6); ABS Lymphocytes 0.7 10^3/ul (1.0-4.8); ABS Monocytes 0.7 10^3/ul (0-0.8); ABS Neutrophils 4.2 10^3/ul (1.5-7.7); ABS Nucleated RBC 0 10^3/ul; Eosinophil % 3.5 % (0-6); Hematocrit 42 % (35-47); Hemoglobin 14.5 g/dl (12.0-16.0); Lymphocyte % 12.3 % (25-47); Mean Corpuscular HGB Conc 35 g/dl (31-36); Mean Corpuscular Hemoglobin 32 pg (27-31); Mean Corpuscular Volume 94 fL (80-97); Mean Platelet Volume 9.4 fL (7.4-10.4); Nucleated Red Blood Cells % 0.1; Platelet Count 196 10^3/ul (150-450); Red Blood Count 4.47 10^6/ul (4.00-5.40); Red Cell Distribution Width 12 % (10.5-15); White Blood Count 5.8 10^3/ul (3.5-10.8)
[2018-05-14 11:26] LABS: EGFR Non-African American 112.5 (>60)
== END 2018-05-13 18:00 | disposition home or self-care (01) ==
LOC: UCEAST 16:50
DX: A38.9 Scarlet fever, uncomplicated (principal); Z87.891 Personal history of nicotine dependence
CPT/HCPCS: 36415; 80053; 81003; 84702; 85025; 86060; 86308; 87651; 99212; G0463

== ENCOUNTER 2018-10-29 09:19 | Emergency (ER) | payer OTHER ==
[2018-10-29 09:43] VITALS: BP 105/68
--- NOTE | 2018-10-29 10:19 | UC ---
Respiratory Complaint HPI - HPI Summary HPI Summary: 27 yo female presents with cough. She tells me that for the last 2-3 days she has had a mild dry cough. Last night she was laying in bed and was coughing and felt a sharp pain in the center of her chest that lasted a few seconds and went away. This, admittedly, made her anxious and she felt a little short of breath. She was able to get to sleep. This morning feels fine, but still has a mild cough. She tells me that she is worried this is going to happen again tonight and is concerned about possible infection. She is currently 29 weeks with her second . She has been seeing OBGYN and has had no issues this . Baby is moving and active. She denies abdominal pain, vaginal bleeding/discharge, current chest pain/palpitations or SOB. No calf pain. No fever or chills. No personal hx or family hx of blood clots/PEs. - History of Current Complaint Chief Complaint: UCGeneralIllness Stated Complaint: PAIN IN CHEST WHEN COUGHING Time Seen by Provider: 10/29/18 10:18 Hx Obtained From: Patient Hx Last Menstrual Period: 04/10/18 Severity Initially: Mild Severity Currently: Mild Pain Intensity: 3 Pain Scale Used: 0-10 Numeric - Allergies/Home Medications Allergies/Adverse Reactions: Allergies Allergy/AdvReac Type Severity Reaction Status Date / Time etodolac Allergy Intermediate Rash Verified 10/29/18 09:33 Penicillins Allergy Intermediate Rash And Verified 10/29/18 09:33 Itching Home Medications: Home Medications Multivit-Minerals/Ferrous Fum [Multivitamin] 1 liq PO DAILY 10/29/18 [History Confirmed 10/29/18] PMH/Surg Hx/FS Hx/Imm Hx - Additional Past Medical History Additional PMH: None Other History Of: Negative For: HIV, Hepatitis B, Hepatitis C, Anticoagulant Therapy - Surgical History Surgical History: Yes Surgery Procedure, Year, and Place: repair to left arm fx. - Family History Known Family History: Positive: None Negative: Renal Disease, Blood Disorder - Social History Lives: With Family Alcohol Use: None Substance Use Type: None Smoking Status (MU): Former Smoker Length of Time of Smoking/Using Tobacco: 3 years Have You Smoked in the Last Year: No When Did the Patient Quit Smoking/Using Tobacco: January 2018 Household Exposure Type: Cigarettes Review of Systems All Other Systems Reviewed And Are Negative: Yes Constitutional: Positive: Negative Skin: Positive: Negative Eyes: Positive: Negative ENT: Positive: Negative Respiratory: Positive: Shortness Of Breath - resolved, Cough Cardiovascular: Positive: Chest Pain - resolved Gastrointestinal: Positive: Negative Neurovascular: Positive: Negative Neurological: Positive: Negative Psychological: Positive: Negative Physical Exam - Summary Physical Exam Summary: GENERAL: NAD. . No pain distress. SKIN: No rashes, sores, lesions, or open wounds. HEENT: Head: AT/NC Eyes: EOM intact. Conjunctiva clear without inflammation or discharge. Ears: Hearing grossly normal. TMs intact, no bulging, erythema, or edema. Nose: Nasal mucosa pink and moist. NTTP maxillary and frontal sinus. Throat: Posterior oropharynx without exudates, erythema, or tonsillar enlargement. Uvula midline. NECK: Supple. Nontender. No lymphadenopathy. CHEST: CTAB. No r/r/w. No accessory muscle use. Breathing comfortably and in no distress. CV: RRR. Pulses intact. Cap refill <2seconds NEURO: Alert. PSYCH: Age appropriate behavior. Triage Information Reviewed: Yes Vital Signs: Initial Vital Signs Temp 98.7 F 10/29/18 09:35 Pulse 96 10/29/18 09:35 Resp 18 10/29/18 09:35 BP 105/68 10/29/18 09:35 Pulse Ox 100 10/29/18 09:35 Vital Signs Reviewed: Yes Respiratory Course/Dx - Course Course Of Treatment: Discussed with pt that her exam is unremarkable and she is currently asymptomatic and breathing comfortably. We discussed the potential of a blood clot/PE, but at this time - based on her history, exam, and vitals - I have a low suspicion for this and suspect her discomfort last night was due to coughing. She has an appointment in the next 2 weeks with her OBGYN - I encouraged her to discuss this with them. If her symptoms return, strongly advised to go to the ED for further evaluation. Pt voiced understanding and agrees with the plan. - Differential Dx/Diagnosis Provider Diagnosis: Cough, Discharge - Sign-Out/Discharge Documenting (check all that apply): Patient Departure All imaging exams completed and their final reports reviewed: No Studies - Discharge Plan Condition: Stable Disposition: HOME Referrals: Stevanovic,Radomir D, MD [Primary Care Provider] - Additional Instructions: If you develop a fever, shortness of breath, chest pain, new or worsening symptoms - please call your PCP or go to the ED. Please monitor your symptoms and if they return, I strongly suggest you go to the ER for further evaluation. Otherwise, please follow up with your OBGYN as scheduled in the coming weeks. - Billing Disposition and Condition Condition: STABLE Disposition: Home
== END 2018-10-29 10:39 | disposition home or self-care (01) ==
LOC: UCEAST 09:19
DX: O26.893 Other specified pregnancy related conditions, third trimester (principal); R05 Cough; Z3A.29 29 weeks gestation of pregnancy; Z88.6 Allergy status to analgesic agent; Z88.0 Allergy status to penicillin; Z87.891 Personal history of nicotine dependence
CPT/HCPCS: 99211; G0463

== ENCOUNTER 2018-12-25 09:43 | Inpatient (IN) | payer OTHER ==
[2018-12-25] MEDS ORDERED: Lactated Ringers 1000 ML Bag* 1,000 ML IV ONE (10:52)
[2018-12-25] MEDS ORDERED: Buffered Lidocaine 1% SYRIN* 1 ML/SYRINGE INTRADERM ONE ×2 (10:52→10:56)
[2018-12-25] MEDS ORDERED: Sodium Citrate/Citric Acid* 15 ML UDC PO ONE (10:56)
[2018-12-25] MEDS ORDERED: Acetaminophen TAB* 325 MG PO ONE (10:56)
[2018-12-25] MEDS ORDERED: Lactated Ringers 1000 ML Bag* 1,000 ML IV SCH ×3 (11:00→15:00)
--- NOTE | 2018-12-25 11:01 | HP ---
General Information - Reason for Visit at 37 weeks, oligohydramnios (TERRI 3.8), Breech presentation, Ferning and nitrazine negative vaginal fluid. - General Information Maternal Age: 28 Grav: 3 Para: 1 SAB: 0 IEA: 1 Estimated Due Date: 01/15/19 Determined By: LMP Maternal Blood Type and Rh: A Positive - Results this Serology/RPR Result: Non-Reactive Rubella Result: Immune HBsAg Result: Negative HIV Result: Negative Past Medical History Delivery History: See Records Pertinent Past Medical History: See Records Past Medical History Comment: Depression/Anxiety HSV II Pertinent Past Surgical History: See Records Past Surgical History Comment: None Pertinent Family History: See Records - Antepartal Records Antepartal Records: Reviewed, Complicated by: - Oligohydramnios and Breech presentation. Review of Systems Constitutional: Comfortable CV Complaint: No Respiratory: Shortness of Breath: No Gastrointestinal: No Nausea/Vomiting, Normal Bowel Movement Genitourinary: No Dysuria, No Bleeding, No Leaking Fluid Musculoskeletal: No Complaint, No Epigastric Pain Neurological: No Headache, No Visual Changes Movement: Normal Exam Allergies/Adverse Reactions: Allergies etodolac Allergy (Intermediate, Verified 10/29/18 09:33) Rash Penicillins Allergy (Intermediate, Verified 10/29/18 09:33) Rash And Itching Temp 98.6 BP 110/80 P 72 RR 20 - Measurements Height: 5 ft 4 in Weight: 145 lb Weight in lbs: [id number] Body Mass Index (BMI): 24.9 Pre- Weight: 112 lb Weight Gained This : 33 lbs and 0 ozs - Exam Breast: Breast Exam Deferred CVA: No CVA Tenderness Extremities: No Edema Heart: Normal Rhythm/Heart Sounds HEENT: No Significant Findings Lungs: Clear Bilaterally Rectal: Rectal Exam Deferred Reflexes: DTR 2+ Thyroid: No Thyromegaly - Abdominal Exam Abdomen Exam: Non-Tender, Fundal Height Consistent with Dates - Ultrasound/Biophysical Profile Biophysical Profile: Normal Gross Body Movements, Normal Muscle Tone, Normal Breathing, Normal Reactive NST, Abnormal Amniotic Fluid - TERRI 3.81 Biophysical Profile - Points Available: 10 Points Targeted Exam Findings See L&D Outpatient Visit Provider Note for Findings: N/A Cervical Exam: Closed Effacement: Thick Station: High Presenting Part: Breech Membrane Status: Intact Bleeding/Discharge: None EFM Findings - External Monitor Findings Baseline Heart Rate: 140 External Monitor Findings: Accelerations Present Assessment/Plan - Assessment at 37 weeks with persistent oligohydramnios and breech presentation. - Obstetrical Risk Factors Obstetrical Risk Factors: Breech - Oligohydramnios - Plan Plan: IV Hydration, Antibiotic Prophylaxis, C/S Delivery - Date/Time of Admission Date of Admission: 12/25/18 Time of Admission: 11:00
[2018-12-25 11:21] LABS: ABS Eosinophils 0.1 10^3/ul (0-0.6); ABS Monocytes 0.7 10^3/ul (0-0.8); ABS Neutrophils 6.2 10^3/ul (1.5-7.7); Eosinophil % 1.4 %; Hematocrit 30 % (35-47); Hemoglobin 10.2 g/dL (12.0-16.0); Lymphocyte % 22.2 %; Mean Corpuscular HGB Conc 34 g/dL (31-36); Mean Corpuscular Hemoglobin 28 pg (27-31); Mean Corpuscular Volume 83 fL (80-97); Mean Platelet Volume 8.8 fL (7.4-10.4); Nucleated Red Blood Cells % 0.1; Platelet Count 245 10^3/uL (150-450); Red Blood Count 3.67 10^6 /uL (3.70-4.87); Red Cell Distribution Width 16 % (10-15)
[2018-12-25] MEDS ORDERED: ceFOXitin 2 GM IVPREMIX* 2 GM/50 ML BAG IVPB ONE (11:35)
[2018-12-25] MEDS ORDERED: Morphine PF AMP (0.5MG/ML)* 5 MG/10 ML AMP ONE (12:30)
[2018-12-25 12:59] LABS: Urine Benzodiazepine Screen None Detected (None Detect); Urine Opiates Screen None Detected (None Detect)
[2018-12-25] MEDS ORDERED: Ondansetron INJ* 2 MG/ML VIAL ONE (13:12)
[2018-12-25] MEDS ORDERED: fentaNYL* 50 MCG/ML 2 ML VIAL (100 MCG VIAL) ONE (13:12)
[2018-12-25] MEDS ORDERED: OXYTOCIN* 10 UNITS/ML 1 ML VIAL ONE ×2 (13:12→13:34)
[2018-12-25] MEDS ORDERED: diPHENhydraMINE IV* 50 MG/ML 1 ml VIAL (BENADRYL) ONE (13:12)
[2018-12-25] MEDS ORDERED: EPHEDrine (Pressors)* 50 MG/ML VIAL ONE (13:12)
[2018-12-25] MEDS ORDERED: Carboprost Tromethamine* 250 MCG INJ ONE (13:17)
[2018-12-25] MEDS ORDERED: Propofol* 10 MG/ML 20 ML BTL ONE (13:34)
[2018-12-25] MEDS ORDERED: Dibucaine 1% 28.35 GM TUBE PR PRN (14:04)
[2018-12-25] MEDS ORDERED: Zolpidem TAB* 5 MG PO PRN (14:04)
[2018-12-25] MEDS ORDERED: Glycerin ADULT SUPP PR PRN (14:04)
[2018-12-25] MEDS ORDERED: oxyCODONE/Acetamin 5/325 MG* TAB PO PRN ×2 (14:04)
[2018-12-25] MEDS ORDERED: Witch Hazel PAD* JAR TOPICAL PRN (14:04)
[2018-12-25] MEDS ORDERED: Acetaminophen TAB* 325 MG PO PRN ×2 (14:04→14:35)
[2018-12-25] MEDS ORDERED: Lidocaine 1% INJ* 10 MG/ML 30 ML SDV ONE (14:22)
[2018-12-25] MEDS ORDERED: Methylergonovine INJ* 0.2 MG/ML 1ML AMP ONE (14:22)
[2018-12-25] MEDS ORDERED: Naloxone* 0.4 MG/ML 1 ML VIAL IV PRN ×2 (14:34→14:35)
[2018-12-25] MEDS ORDERED: fentaNYL* 50 MCG/ML 2 ML VIAL (100 MCG VIAL) IV PRN (14:34)
[2018-12-25] MEDS ORDERED: DiMENhydriNATE IV* 50 MG/ML VIAL IV PUSH PRN (14:35)
[2018-12-25] MEDS ORDERED: Ondansetron INJ* 2 MG/ML VIAL IV PRN (14:35)
[2018-12-25] MEDS ORDERED: PROCHLORPERAZINE INJ 5 MG/ML 2 ML VIAL IV PRN (14:35)
[2018-12-25] MEDS ORDERED: Nalbuphine* 10 MG/ML 1 ML VIAL IV PRN (14:35)
[2018-12-25] MEDS ORDERED: diPHENhydraMINE IV* 50 MG/ML 1 ml VIAL (BENADRYL) IV PRN (14:35)
[2018-12-25] MEDS ORDERED: Scopolamine 1.5 mg* PATCH TRANSDERM PRN (14:35)
[2018-12-25] MEDS: Docusate CAP* 100 MG PO SCH (21:07)
[2018-12-25] MEDS: Simethicone TAB* 80 MG TAB.CHEW PO SCH ×2 (21:07→21:15)
[2018-12-25] MEDS: oxyCODONE/Acetamin 5/325 MG* TAB PO PRN (21:07)
[2018-12-26] MEDS: oxyCODONE/Acetamin 5/325 MG* TAB PO PRN ×5 (04:11→23:13)
[2018-12-26] MEDS ORDERED: Acetaminophen TAB* 325 MG PO PRN (04:38)
[2018-12-26 08:19] LABS: ABS Eosinophils 0.2 10^3/ul (0-0.6); ABS Lymphocytes 2.1 10^3/ul (1.0-4.8); ABS Monocytes 1.4 10^3/ul (0-0.8); ABS Neutrophils 9.5 10^3/ul (1.5-7.7); Eosinophil % 1.5 %; Hematocrit 27 % (35-47); Hemoglobin 8.6 g/dL (12.0-16.0); Lymphocyte % 15.9 %; Mean Corpuscular HGB Conc 32 g/dL (31-36); Mean Corpuscular Hemoglobin 28 pg (27-31); Mean Corpuscular Volume 85 fL (80-97); Mean Platelet Volume 8.5 fL (7.4-10.4); Nucleated Red Blood Cells % 0.1; Platelet Count 229 10^3/uL (150-450); Red Blood Count 3.12 10^6 /uL (3.70-4.87); Red Cell Distribution Width 16 % (10-15); White Blood Count 13.2 10^3/uL (3.5-10.8)
[2018-12-26] MEDS: ValACYclovir (*) 1 GM TAB PO SCH (09:33)
[2018-12-26] MEDS: Simethicone TAB* 80 MG TAB.CHEW PO SCH ×4 (09:33→21:05)
[2018-12-26] MEDS: Ferrous Gluconate TAB* 324 MG TAB PO SCH ×2 (09:33→21:05)
[2018-12-26] MEDS: Docusate CAP* 100 MG PO SCH ×3 (09:33→21:05)
[2018-12-27] MEDS: oxyCODONE/Acetamin 5/325 MG* TAB PO PRN ×4 (03:15→20:59)
[2018-12-27] MEDS: Docusate CAP* 100 MG PO SCH ×3 (09:52→20:59)
[2018-12-27] MEDS: Ferrous Gluconate TAB* 324 MG TAB PO SCH ×2 (09:53→20:59)
[2018-12-27] MEDS: Simethicone TAB* 80 MG TAB.CHEW PO SCH ×4 (09:53→20:59)
[2018-12-27] MEDS: ValACYclovir (*) 1 GM TAB PO SCH (10:06)
[2018-12-27] MEDS: Ibuprofen TAB* 600 MG PO PRN (10:16)
[2018-12-28] MEDS: Ibuprofen TAB* 600 MG PO PRN ×3 (00:37→13:11)
[2018-12-28] MEDS: oxyCODONE/Acetamin 5/325 MG* TAB PO PRN ×2 (00:50→13:11)
[2018-12-28] MEDS: Docusate CAP* 100 MG PO SCH ×2 (08:10→13:08)
[2018-12-28] MEDS: Simethicone TAB* 80 MG TAB.CHEW PO SCH ×2 (08:10→13:10)
[2018-12-28] MEDS: Ferrous Gluconate TAB* 324 MG TAB PO SCH (08:10)
[2018-12-28 08:11] VITALS: BP 100/64
[2018-12-28] MEDS: ValACYclovir (*) 1 GM TAB PO SCH (08:11)
[2018-12-28] MEDS ORDERED: Scopolamine PATCH Remove* 1 NOTE MISC PATCH OFF PRN (14:36)
--- NOTE | 2018-12-30 11:06 | OP ---
OPERATIVE REPORT: DATE OF OPERATION: 12/25/18 DATE OF : 88 SURGEON: Ciro Mcnally MD. IMAGE ARCHIVIST: Dr. Lewis. ANESTHESIA: Spinal. PRE-OP DIAGNOSIS: at 37 weeks with severe oligohydramnios and breech presentation. POST-OP DIAGNOSIS: at 37 weeks with severe oligohydramnios and breech presentation. OPERATIVE PROCEDURE: Primary low-transverse section. ESTIMATED BLOOD LOSS: 700 cc. FLUIDS: She received 2700 cc of IV crystalloid fluid. URINE OUTPUT: Clear. FINDINGS: Delivery of a viable male weighing 6 pounds 2 ounces in popeye breech presentation w ith Apgars of 8 and 9. The placenta was grossly intact with a 3-vessel cord noted. The uterus, adne xa, bowel and bladder were within normal limits and there was no amniotic fluid noted. DESCRIPTION OF PROCEDURE: The patient was taken to the operating room where she was identified. She was placed on the operating table where a spinal anesthetic was obtained without difficulty. She wa s then placed in the supine position with a leftward tilt, prepped and draped in a normal sterile fas hion. A Pfannenstiel skin incision was then made with a knife and carried through to the underlying layer of fascia. The fascia was nicked in the midline and extended laterally with curved Myrick scisso rs. The fascia was then grasped superiorly and inferiorly with Zoei clamps and dissected off sharp ly from the recuts muscle. The rectus muscle was in the midline bluntly. The peritoneum w as identified, grasped with pickups, and entered sharply with Metzenbaum scissors and extended superi vanessa and inferiorly sharply. A bladder blade was inserted into the patient's abdomen and bladder fla p was created using Metzenbaum scissors, over which the bladder blade was then reinserted. A low-tra nsverse uterine incision was made with a knife and extended laterally with bandage scissors. The inf ant was noted to be in a popeye breech presentation. I proceeded to deliver the baby through a breech extraction without any complications. After the infant was delivered, the cord was clamped and cut and the was handed off to waiting real estate rental agent. Cord bloods were obtained. The placenta was removed manually. The uterus was then exteriorized and cleared of all clot and debris using moist la parotomy sponges. The uterine incision was then closed using 0 Polysorb suture in a running locked f ashion with a second imbricating layer of 0 Polysorb suture with good hemostasis noted. The uterus w as then returned to the patient's abdomen. The gutters were then cleared of all clot and debris usin g moist laparotomy sponges. All the sponges and instruments were removed from the patient's abdomen. The peritoneum was then closed using 3-0 Polysorb suture in a running fashion. The fascia was clos ed using 0 Polysorb suture in a running fashion, and the skin was closed with a 4-0 Monocryl subcutic ular stitch. The patient tolerated the procedure well. Sponge, lap, and needle counts were correct x2. She was then transferred to the recovery room area in stable condition. [id number]/[facility] #: [id number]
== END 2018-12-28 16:41 | disposition home or self-care (01) | DRG 540 ==
LOC: MCHOBOUT 09:43 → MCHOB 10:45
PROVIDERS: ADMIT Obstetrics & Gynecology; ATTEND Obstetrics & Gynecology
PROC: 4A1HXCZ Monitoring of Products of Conception, Cardiac Rate, External Approach (ICD-10-PCS; 2018-12-25)
PROC: 10D00Z1 Extraction of Products of Conception, Low, Open Approach (ICD-10-PCS; principal; 2018-12-25 12:30)
DX: O32.1XX0 Maternal care for breech presentation, not applicable or unspecified (principal); O41.03X0 Oligohydramnios, third trimester, not applicable or unspecified; O90.81 Anemia of the puerperium; Z88.8 Allergy status to other drugs, medicaments and biological substances; Z88.0 Allergy status to penicillin; Z3A.37 37 weeks gestation of pregnancy; Z37.0 Single live birth
CPT/HCPCS: 36415; 80307; 85025; 86850; 86900; 86901; A9270-GY; J0694; J1200; J2210; J2300; J2405; J2590; J2704; J3010

== ENCOUNTER 2019-08-22 16:16 | Emergency (ER) | payer MEDICAID, OTHER ==
[2019-08-22 16:33] VITALS: BP 116/75
--- NOTE | 2019-08-22 17:03 | UC ---
Throat Pain/Nasal Brennan HPI - HPI Summary HPI Summary: Has had cough for 2 days, today developed cough. feels feverish, no chills or GI symps - History of Current Complaint Chief Complaint: UCGeneralIllness Stated Complaint: SORE THROAT Time Seen by Provider: 08/22/19 16:34 Hx Obtained From: Patient Hx Last Menstrual Period: Onset/Duration: Gradual Onset Pain Intensity: 0 Cough: Nonproductive Associated Signs & Symptoms: Positive: Fever, Rash. Negative: Wheezing - Allergies/Home Medications Allergies/Adverse Reactions: Allergies Allergy/AdvReac Type Severity Reaction Status Date / Time etodolac Allergy Intermediate Rash Verified 08/22/19 16:33 Penicillins Allergy Intermediate Rash And Verified 08/22/19 16:33 Itching Home Medications: Home Medications Omeprazole CAP (NF) [Prilosec CAP* 20 MG] 20 mg PO DAILY 08/22/19 [History Confirmed 08/22/19] Prazosin 1 mg CAP [Minipress 1 mg CAP] 1 g PO BEDTIME PRN 08/22/19 [History Confirmed 08/22/19] PMH/Surg Hx/FS Hx/Imm Hx Previously Healthy: Yes GI/ History: Gastroesophageal Reflux Psychological History: Depression Other History Of: Negative For: HIV, Hepatitis B, Hepatitis C, Anticoagulant Therapy - Surgical History Surgical History: Yes Surgery Procedure, Year, and Place: repair to left arm fx. - Family History Known Family History: Positive: None Negative: Renal Disease, Blood Disorder - Social History Occupation: Unemployed Lives: With Family Alcohol Use: None Substance Use Type: None Smoking Status (MU): Never Smoked Tobacco Length of Time of Smoking/Using Tobacco: 3 years Have You Smoked in the Last Year: No When Did the Patient Quit Smoking/Using Tobacco: January 2018 Household Exposure Type: Cigarettes - Immunization History Most Recent Influenza Vaccination: 07/23/18 Most Recent Pneumonia Vaccination: Unknown Review of Systems All Other Systems Reviewed And Are Negative: Yes Constitutional: Positive: Fever Skin: Positive: Rash - on chest ENT: Positive: Sore Throat Respiratory: Positive: Cough Cardiovascular: Positive: Negative Gastrointestinal: Positive: Negative Psychological: Positive: Negative Is Patient Immunocompromised?: No Physical Exam Triage Information Reviewed: Yes Appearance: Well-Appearing, No Pain Distress, Well-Nourished Vital Signs: Initial Vital Signs Temp 98.4 F 08/22/19 16:28 Pulse 99 08/22/19 16:28 Resp 18 08/22/19 16:28 BP 116/75 08/22/19 16:28 Pulse Ox 100 08/22/19 16:28 Vital Signs Reviewed: Yes Eyes: Positive: Conjunctiva Clear ENT: Positive: Normal ENT inspection, Pharynx normal Respiratory Exam: Normal Respiratory: Positive: Lungs clear, Other: - no cough on exam Cardiovascular Exam: Normal Cardiovascular: Positive: RRR Musculoskeletal Exam: Normal Neurological Exam: Normal Psychological Exam: Normal Skin: Positive: Rashes - there is a faintly erythemic confluent macular rash on chest Throat Pain/Nasal Course/Dx - Differential Dx/Diagnosis Differential Diagnosis/HQI/PQRI: Influenza, Sinusitis, Tonsillitis, URI Provider Diagnosis: Upper respiratory infection Discharge ED - Sign-Out/Discharge Documenting (check all that apply): Patient Departure All imaging exams completed and their final reports reviewed: No Studies - Discharge Plan Condition: Good Disposition: HOME Patient Education Materials: Upper Respiratory Infection (ED) Referrals: Bobby Henderson MD [Primary Care Provider] - 2 Days (for recheck if no better) Additional Instructions: drink plenty of fluids and rest use over the counter cough and cold meds as directed for symptom relief - Billing Disposition and Condition Condition: GOOD Disposition: Home
== END 2019-08-22 17:19 | disposition home or self-care (01) ==
LOC: UCEAST 16:16
DX: J06.9 Acute upper respiratory infection, unspecified (principal); R21 Rash and other nonspecific skin eruption; K21.9 Gastro-esophageal reflux disease without esophagitis; Z88.0 Allergy status to penicillin; Z88.6 Allergy status to analgesic agent; Z79.899 Other long term (current) drug therapy
CPT/HCPCS: 87651; 99211; G0463

== ENCOUNTER 2023-02-22 00:03 | Inpatient (IN) ==
[2023-02-22] MEDS ORDERED: Buffered Lidocaine 1% SYRIN 1 ml INTRADERM ONE (00:37)
[2023-02-22] MEDS ORDERED: Promethazine INJ(RESTRICTED) 25 MG/ML 1 ml VIAL IV PRN (00:37)
[2023-02-22] MEDS ORDERED: Nalbuphine 10 MG/ML 1 ML VIAL IV PRN (00:37)
[2023-02-22] MEDS ORDERED: Lactated Ringers 1000 ml BAG 1,000 ML IV ONE ×2 (00:37→02:43)
[2023-02-22] MEDS ORDERED: Lactated Ringers 1000 ml BAG 1,000 ML IV SCH ×4 (01:00→11:00)
[2023-02-22 01:01] LABS: Hemoglobin 9.6 g/dL (11.5-14.3); Mean Corpuscular Hemoglobin 24.4 pg (27-33); Mean Corpuscular Hgb Conc 33.2 g/dL (31-36); Mean Corpuscular Volume 73.5 fL (80-97); Mean Platelet Volume 8.8 fL (7.5-11.2); Platelet Count 216 10^3/uL (150-450); Red Blood Count 3.95 10^6/uL (3.63-4.92); Red Cell Distribution Width 16.9 % (12-17); White Blood Count 10.1 10^3/uL (3.8-11.8)
[2023-02-22 01:13] LABS: Urine Benzodiazepine Screen None Detected (None Detect); Urine Cannabinoids Screen Presumptive Positive (None Detect); Urine Opiates Screen None Detected (None Detect)
[2023-02-22] MEDS ORDERED: Lidocaine 1% w EPI 1:200,000 SDV 10 ML VIAL ONE (01:41)
[2023-02-22] MEDS ORDERED: OBEPIDURAL (200 ML) 200 ML EPIDURAL ONE (01:41)
[2023-02-22 02:19] LABS: ABS Basophils 0.1 10^3/uL (0.0-0.1); ABS Eosinophils 0.1 10^3/uL (0.0-0.5); ABS Lymphocytes 2.1 10^3/uL (1.0-4.8); ABS Monocytes 0.8 10^3/uL (0.0-0.9); ABS Neutrophils 6.9 10^3/uL (1.5-7.6); ABS Nucleated RBC 0.02 10^3/ul; Eosinophil % 1.1 %; Lymphocyte % 21.3 %; Nucleated Red Blood Cells % 0.2 /100 WBC (0.0-0.4)
[2023-02-22] MEDS ORDERED: Lactated Ringers 1000 ml BAG 500 ML IV PRN ×2 (02:43)
[2023-02-22] MEDS ORDERED: Sodium Citrate/Citric Acid LIQ 15 ML UDC PO PRN (02:43)
[2023-02-22] MEDS ORDERED: Phenylephrine 40 mcg/mL 10mL (400mcg) SYRINGE IV PUSH PRN ×2 (02:43)
[2023-02-22] MEDS ORDERED: OBEPIDURAL (200 ML) 200 ML EPIDURAL SCH (03:00)
[2023-02-22 03:31] LABS: Urine Appearance Cloudy; Urine Bilirubin Negative (Negative); Urine Blood 2+ (Negative); Urine Color Yellow; Urine Glucose Negative (Negative); Urine Ketones 1+ (Negative); Urine Nitrite Negative (Negative); Urine Protein Negative (Negative); Urine Specific Gravity 1.006 (1.002-1.030); Urine Urobilinogen Negative (Negative)
[2023-02-22 03:41] LABS: Urine Amorphous Crystals Present (Absent); Urine Bacteria 1+ (Absent); Urine Red Blood Cell 3+(>10/hpf) (Absent); Urine Squamous Epithelial Cell Present (Absent); Urine White Blood Cell Trace(0-5/hpf) (Absent)
[2023-02-22] MEDS ORDERED: Oxytocin in LR 20,000 MILLI.UNIT/1,000 ML BAG IV ONE (07:38)
[2023-02-22] MEDS ORDERED: Glycerin ADULT 2.4 gm SUPP PR PRN (10:05)
[2023-02-22] MEDS ORDERED: Dibucaine 1% OINT 28.35 GM TUBE PR PRN (10:05)
[2023-02-22] MEDS ORDERED: Oxytocin in LR 20,000 MILLI.UNIT/1,000 ML BAG IV SCH (10:05)
[2023-02-22] MEDS ORDERED: Witch Hazel PAD JAR TOPICAL PRN (10:05)
[2023-02-23 06:54] LABS: ABS Eosinophils 0.2 10^3/uL (0.0-0.5); ABS Lymphocytes 2.2 10^3/uL (1.0-4.8); ABS Monocytes 0.6 10^3/uL (0.0-0.9); ABS Nucleated RBC 0.01 10^3/ul; Eosinophil % 1.6 %; Hematocrit 24.7 % (35-45); Lymphocyte % 20.1 %; Mean Corpuscular Hgb Conc 32.3 g/dL (31-36); Mean Corpuscular Volume 74.1 fL (80-97); Mean Platelet Volume 8.6 fL (7.5-11.2); Nucleated Red Blood Cells % 0.1 /100 WBC (0.0-0.4); Platelet Count 165 10^3/uL (150-450); Red Blood Count 3.33 10^6/uL (3.63-4.92); White Blood Count 11.1 10^3/uL (3.8-11.8)
[2023-02-24 07:45] VITALS: BP 99/64
== END 2023-02-24 16:20 | disposition home or self-care (01) | DRG 560 ==
LOC: MCHOBOUT 00:03 → MCHOB 00:29
PROVIDERS: ADMIT Obstetrics & Gynecology; ATTEND Obstetrics & Gynecology